=== PATIENT | male | born 1985 | race Two or more races ===

== ENCOUNTER 2021-05-03 14:28 | Emergency (ER) | payer OTHER ==
[~2021-05-03] VITALS: Ht 172.7 cm; Wt 77.1 kg
[2021-05-03] MEDS ORDERED: IBUPROFEN 800 MG TAB PO ONE (15:15)
[2021-05-03 16:31] VITALS: BP 122/77
== END 2021-05-03 17:26 | disposition home or self-care (01) ==
LOC: ER 14:28
DX: S46.812A Strain of other muscles, fascia and tendons at shoulder and upper arm level, left arm, initial encounter (principal); X58.XXXA Exposure to other specified factors, initial encounter; Y93.89 Activity, other specified; Y92.89 Other specified places as the place of occurrence of the external cause; Y99.8 Other external cause status
CPT/HCPCS: 73030

== ENCOUNTER → 2021-05-28 | Emergency (ER) | payer OTHER ==
[~2021-05-28] VITALS: Ht 172.7 cm; Wt 77.1 kg
[~2021-05-28] MED LIST: KETOROLAC TROMETH 60MG/2ML VIAL IM ONE; POTASSIUM EFFERVESENT TAB 25 MEQ PO ONE
[2021-05-28 19:58] VITALS: BP 155/87
[2021-05-28 21:21] LABS: Basophils # (auto) 0.1 10 ^3/uL (0-0.2); Basophils % (auto) 0.6 % (0.0-2.0); Eosinophils # (auto) 0 10 ^3/uL (0-0.8); Eosinophils % (auto) 0.4 % (0.0-7.0); Hemoglobin 17.4 g/dL (13.5-17.5); Lymphocytes # (auto) 1.2 10 ^3/uL (0.4-5.4); Lymphocytes % (auto) 12.9 % (10.0-50.0); Mean Corpuscular Hgb Conc. 36.3 g/dL (32.0-36.0); Mean Corpuscular Volume 112.8 fL (80.0-100.0); Monocytes # (auto) 0.5 10 ^3/uL (0-1.3); Monocytes % (auto) 5.5 % (0.0-12.0); Neutrophils # (auto) 7.4 10 ^3/uL (1.6-8.6); Neutrophils % (auto) 80.6 % (37.0-80.0); Red Blood Cells 4.25 10^6/uL (4.5-5.90); Red Cell Distribution Width 14.4 % (11.8-14.3); White Blood Cell 9.2 10^3/uL (4.4-10.8)
[2021-05-28 21:40] LABS: Albumin 2.9 g/dL (3.4-5.0); CRP High Sensitivity 0.45 mg/dL (< 0.3); Calcium 7.9 mg/dL (8.5-10.1)
[2021-05-28 21:43] LABS: BUN/Creatinine Ratio 9.1; Bilirubin, Total 3.6 mg/dL (0.2-1.0); Total Protein 6.6 g/dL (6.4-8.2)
[2021-05-28 21:47] LABS: Potassium 2.4 mmol/L (3.5-5.1)
== END | disposition home or self-care (01) ==
LOC: ER 18:03
DX: M70.22 Olecranon bursitis, left elbow (principal); L03.114 Cellulitis of left upper limb; R94.5 Abnormal results of liver function studies
CPT/HCPCS: 36415; 73200; 80053; 85025; 85652; 86141; 96372; 99284; J1885